=== PATIENT | male | born 1990 | race Caucasian/White ===

== ENCOUNTER 2022-09-20 19:30 | Emergency (ER) | payer MEDICAID ==
[~2022-09-20] VITALS: Ht 177.8 cm; Wt 86.6 kg
--- NOTE | 2022-09-20 19:48 | ED Upper Extremity ---
General Chief Complaint: Upper Extremity Stated Complaint: L PINKY FINGER PAIN Source: patient History of Present Illness Date Seen by Provider: Sep 20, 2022 Time Seen by Provider: 19:32 Initial Comments 32-year-old male presenting with complaints of pain to his left pinky finger. He was trying to change a tire and the wrench slipped and he hit his hand ag ainst the rim. When he did that he was having pain to the pinky finger and he felt like it had a deformity to it. He did try pulling on it was painful as well as he felt like he heard and felt bone crunching. He has some decreased sensation on the lateral aspect of the finger towards the ring finger. 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 After moving the finger and putting ice on it as well as taking 400 mg of ibuprofen the pain was not as bad now. He took the ibuprofen around 1800. This occurred around 1730. He is right-hand dominant Onset: this evening Severity: mild (2 or 3 now) Pain/Injury Location: left 5th finger Method of Injury: direct blow Modifying Factors: Worse With Movement; Improves With Pain Medication Allergies and Home Medications Allergies Coded Allergies: No Known Drug Allergies (Unverified , 09/20/22) Patient Home Medication List Home Medication List Reviewed: Yes Hydrocodone/Acetaminophen (Hydrocodone-Acetamin 5-325 mg) 5 Mg-325 Mg Tablet, 1 TAB PO Q6H PRN for PAIN SEVERE Prescribed by: LETITIA CHAMBERLAIN on 09/20/222032 Review of Systems Constitutional: No chills, No fever EENTM: no symptoms reported Respiratory: no symptoms reported Cardiovascular: no symptoms reported Gastrointestinal: no symptoms reported Genitourinary: no symptoms reported Musculoskeletal: see HPI Skin: No change in color Psychiatric/Neurological: See HPI Past Vvceyvu-Vqzzyb-Dppnrj Hx Patient Social History Tobacco Use?: No Use of E-Cig and/or Vaping dev: No Substance use?: No Alcohol Use?: No Past Medical History Surgery/Hospitalization HX: Deviated Septum surgery Physical Exam Vital Signs Vital Signs - First Documented 09/20/22 19:34 Temp 37.2 Pulse 80 Resp 18 B/P (MAP) 140/96 (111) Pulse Ox 100 O2 Delivery Room Air Capillary Refill : Height, Weight, BMI Height: '" Weight: lbs. oz. kg; BMI Method: General Appearance: WD/WN, no apparent distress Cardiovascular: normal peripheral pulses Hand: Left, deformity (proximal phalanx 5ht finger), limited ROM (due to pain at the MCP joint), soft tissue tenderness Neurologic/Tendon: normal sensation, normal motor functions Neurologic/Psychiatric: alert, oriented x 3 Skin: normal color, warm/dry Procedures/Interventions Splinting and Joint Reduction : Location: left pinky finger Pre-Proc Neuro Vasc Exam: normal Post-Proc Neuro Vasc Exam: normal Progress After obtaining verbal consent I injected 1% plain lidocaine and the ring finger block fashion. He had a total of 4 mL of 1% plain lidocaine infiltrated in the pinky finger. Then using direct manipulation I tried to do a closed reduction of the fracture of his proximal phalanx. After having improved positioning I had him do a range of motion. He was having improved range of motion of the left pinky finger. He was neurovascularly intact both pre and post procedure. Postreduction films were obtained and he had good alignment and improved align ment of the fracture fragments. He was placed in a aluminum foam padded finger splint to help limit movement at the MCP joint. This was then further elizabeth taped to the finger next to it. Reduction Attempts: 1 Progress/Results/Core Measures Results/Orders My Orders Orders - LETITIA CHAMBERLAIN MD Finger(S) (09/20/22 19:42) Finger(S) (09/20/22 20:08) Rx-Hydrocodone/Apap 5-325 Mg (Rx-Vicodin (09/20/22 20:30) Medications Given in ED Current Medications Medications Dose Ordered Sig/Hallie Route Start Time Stop Time Status Last Admin Dose Admin Acetaminophen/ Hydrocodone Bitart 1 ea Q6H PRN PO 09/20/22 20:30 09/20/22 20:37 DC 09/20/22 20:36 1 EA Vital Signs/I&O 09/20/22 19:34 Temp 37.2 Pulse 80 Resp 18 B/P (MAP) 140/96 (111) Pulse Ox 100 O2 Delivery Room Air Progress Progress Note #1: Progress Note Potential diagnosis of finger fracture, finger dislocation, finger contusion. Obtain x-rays of the left pinky finger to evaluate the bones. He states that his pain is a 2 out of 10 currently since he took ibuprofen and had been applying ice as well as he had removed the finger. Will defer any additional pain medicine for now. Progress Note #2: Progress Note On my personal review and interpretation of his three-view films of the left pinky finger he had a proximal phalanx fracture with dislocation and angulation. I verbally consented him for a reduction and splinting of the pinky finger. After obtaining verbal consent I injected 1% plain lidocaine and the ring finger block fashion. He had a total of 4 mL of 1% plain lidocaine infiltrated in the pinky finger. Then using direct manipulation I tried to do a closed reduction of the fracture of his proximal phalanx. After having improved positioning I had him do a range of motion. He was having improved range of motion of the left pinky finger. He was neurovascularly intact both pre and post procedure. Postreduction films were obtained and he had good alignment and improved alignment of the fracture fragments. He was placed in a aluminum foam padded finger splint to help limit movement at the MCP joint. This was then further elizabeth taped to the finger next to it. Counseled on follow-up and return precautions. Given information for orthopedics to follow-up and recommended that he be seen within the next 7 to 10 days to ensure that it was healing okay and was not getting displaced. If he was having displacement or increased pain or new numbness he should be seen sooner or get an to be reevaluated in case he needed pinning or surgery. Advised to use ice and elevate his hand to help with pain and swelling. Try to keep the splint on at all times especially until he can see orthopedics. Use acetaminophen and/or ibuprofen for pain. For severe pain he was sent with for hydrocodone/acetaminophen 5/325 1 every 6 hours as needed for severe pain #4 pills. A prescription for the same medicine every 6 hours up to 3 days was sent to [facility] in case he needed additional pain control. Given information for Dr. SWANSON, nurse practitioner Dr. Lalo Akhtar. Diagnostic Imaging Diagonstic Imaging: Xray Plain Films/CT/US/NM/MRI: hand (pinky finger) Comments [facility] [place], [place] NAME: EL ARRIOLA MED REC#: [id number] PT STATUS: REG ER : 1990 PHYSICIAN: LETITIA CHAMBERLAIN MD ADMIT DATE: 09/20/22/ER FS Signed Date of Exam:09/20/22 FINGER(S) EXAMINATION: The 5th digit radiograph TECHNIQUE: AP and oblique views of the 5th digit obtained. HISTORY: left pinky finger pain/deformity p hit on tire while changing it COMPARISON: None available. FINDINGS: Acute displaced oblique fracture through the midshaft of the proximal left 5th phalanx with volar angulation. No other fractures identified. No unexpected radiopaque foreign body. IMPRESSION: Acute displaced oblique fracture through the midshaft of the proximal left 5th phalanx with volar angulation. Dictated by: Dictated on workstation # [id number] Dict: 09/20/221956 Trans: 09/20/221957 [facility] [place] [id number] Interpreted by: MILDRED DAVIDSON DO Electronically signed by: MILDRED DAVIDSON DO 09/20/221957 Reviewed: Reviewed by Me Diagonstic Imaging: Xray Plain Films/CT/US/NM/MRI: hand (pinky finger) Comments [facility] [place] [place] NAME: EL ARRIOLA [facility] REC#: [id number] PT STATUS: REG ER : 1990 PHYSICIAN: LETITIA CHAMBERLAIN MD ADMIT DATE: 09/20/22/ER FS Draft Date of Exam:09/20/22 FINGER(S) EXAMINATION: Left hand radiograph EXAM DATE: 09/20/2022 8:17 PM COMPARISON: None available. HISTORY: post reduction left pinky TECHNIQUE: 3 views FINDINGS: There is improved anatomic alignment of the left 5th digit proximal phalanx fracture, status post reduction. There is minimal angulation and displacement. No new acute fracture. The joint spaces are normal. The soft tissues are normal. IMPRESSION: 1. Improved anatomic alignment of the left 5th digit proximal phalanx fracture compared to prior exam post reduction. Dictated on workstation # [id number] Dict: 09/20/222021 Trans: 09/20/222023 [facility] [id number] Interpreted by: MARGARITO REDMOND DO Electronically signed by: Reviewed: Reviewed by Me Departure Impression Primary Impression: Closed displaced fracture of proximal phalanx of left little finger Qualified Codes: S62.617A - Displaced fracture of proximal phalanx of left little finger, initial encounter for closed fracture Disposition: 01 HOME, SELF-CARE Condition: Stable Departure-Patient Inst. Decision time for Depature: 20:31 Referrals: CATHY CADE NO,LOCAL PHYSICIAN (PCP) Primary Care Physician HORACE OCONNOR MD, MICHAEL P MD [facility] Patient Instructions: Splint Care ED, Finger Fracture ED Add. Discharge Instructions: Try to wear the splint is much as possible especially in this first week or until you follow-up with orthopedics. Follow-up with orthopedics within the next 7 to 10 days so that they could recheck the fracture and make sure that it was stable and starting to heal. If you have worsening pain, change in position of the finger or having numbness that is worsening then return or seek care at the orthopedic doctor office so that they can evaluate for possible pinning or readjustment of the fracture. Try to ice and elevate the hand is much as possible help with pain and swelling. You can take acetaminophen and/or ibuprofen [id number] to help with pain. For severe pain you have a few hydrocodone/acetaminophen 5/325 mg pills 1 every 6 hours as needed for severe pain. All discharge instructions reviewed with patient and/or family. Voiced understanding. Scripts Hydrocodone/Acetaminophen (Hydrocodone-Acetamin 5-325 mg) 5 Mg-325 Mg Tablet 1 TAB PO Q6H PRN for PAIN SEVERE for 3 Days, #12 TAB 0 Refills Prov: LETITIA CHAMBERLAIN MD 09/20/22 LETITIA CHAMBERLAIN MD Sep 20, 2022 19:48
--- NOTE | 2022-09-20 20:00 | Diagnostic Imaging Report ---
EXAMINATION: The 5th digit radiograph TECHNIQUE: AP and oblique views of the 5th digit obtained. HISTORY: left pinky finger pain/deformity p hit on tire while changing it COMPARISON: None available. FINDINGS: Acute displaced oblique fracture through the midshaft of the proximal left 5th phalanx with volar angulation. No other fractures identified. No unexpected radiopaque foreign body. IMPRESSION: Acute displaced oblique fracture through the midshaft of the proximal left 5th phalanx with volar angulation. Dictated by: Dictated on workstation # [id number]
--- NOTE | 2022-09-20 20:24 | Diagnostic Imaging Report ---
EXAMINATION: Left hand radiograph EXAM DATE: 09/20/2022 8:17 PM COMPARISON: None available. HISTORY: post reduction left pinky TECHNIQUE: 3 views FINDINGS: There is improved anatomic alignment of the left 5th digit proximal phalanx fracture, status post reduction. There is minimal angulation and displacement. No new acute fracture. The joint spaces are normal. The soft tissues are normal. IMPRESSION: 1. Improved anatomic alignment of the left 5th digit proximal phalanx fracture compared to prior exam post reduction. Dictated by: Dictated on workstation # [id number]
[2022-09-20] MEDS ORDERED: ACHD5005 PO (20:32)
[2022-09-20 20:37] VITALS: BP 140/96
== END 2022-09-20 20:37 | disposition home or self-care (01) ==
LOC: ER FS 19:32
DX: S62.617A Displaced fracture of proximal phalanx of left little finger, initial encounter for closed fracture (principal); Z28.310 Unvaccinated for COVID-19; W22.8XXA Striking against or struck by other objects, initial encounter; Y93.89 Activity, other specified
CPT/HCPCS: 73140